=== PATIENT | male | born 1975 | race Caucasian/White ===

== ENCOUNTER 2022-12-01 11:13 | Emergency (ER) | payer OTHER ==
[2022-12-01] MEDS ORDERED: Sodium Chloride 0.9% 10 ML Syringe FLUSH PRN (11:25)
[2022-12-01] MEDS ORDERED: Ondansetron 4 MG/2 ML SDV IV ONE (11:29)
[2022-12-01] MEDS ORDERED: Aspirin 81 MG Tab.Chew PO ONE (11:29)
[2022-12-01 11:35] LABS: BASOPHILS PERCENT AUTO 0.1 % (0.0-1.0); EOSINOPHILS PERCENT AUTO 0.8 % (1.0-3.0); HEMATOCRIT 46.2 % (40.0-54.0); HEMOGLOBIN 16.4 g/dL (14.0-18.0); LYMPHOCYTES PERCENT AUTO 17.2 % (20.5-50.1); MEAN CORPUSCULAR HEMOGLOBIN 32.8 pg (27.0-34.0); MEAN CORPUSCULAR HGB CONC 35.5 g/dL (33.0-35.0); MEAN CORPUSCULAR VOLUME 92.4 fL (80-100); MONOCYTES PERCENT AUTO 7.9 % (2-8); PLATELET COUNT,PLT 191 10^3/uL (150-450); WHITE BLOOD CELL COUNT,WBC 8.6 10^3/uL (5.0-10.0)
[2022-12-01 12:03] LABS: A/G RATIO 1.2; ALANINE AMINOTRANSFERASE,ALT 84 U/L (16-63); ALBUMIN 4.6 g/dL (3.4-5.0); ALKALINE PHOSPHATASE 62 U/L (46-116); ANION GAP 14.9 mEq/L (7-13); ASPARTATE AMNIOTRANSFERASE,AST 38 U/L (15-37); BILIRUBIN TOTAL 0.8 mg/dL (0.2-1.0); BLOOD UREA NITROGEN,BUN 14 mg/dL (7-18); BUN/CREATININE RATIO 15.7 (No establ ref range); CALCIUM 10.2 mg/dL (8.5-10.1); CARBON DIOXIDE,CO2 29 mmol/L (21-32); CHLORIDE,CL 99 mmol/L (98-107); CREATININE 0.89 mg/dL (0.70-1.30); GLUCOSE RANDOM 122 mg/dL (70-99); LIPASE 66 U/L (73-393); POTASSIUM,K 3.9 mmol/L (3.5-5.1); PROTEIN TOTAL,TP 8.5 g/dL (6.4-8.2); SODIUM,NA 139 mmol/L (136-145)
[2022-12-01 12:05] LABS: ESTIMATED GFR 108 mL/min (>=60)
[2022-12-01 12:22] LABS: PTT,PARTIAL THROMBOPLSTIN TIME 27.5 SEC (22.0-34.0)
== END 2022-12-01 14:01 | disposition home or self-care (01) ==
LOC: DL.ED 11:13
DX: R07.89 Other chest pain (principal); K70.9 Alcoholic liver disease, unspecified; F10.90 Alcohol use, unspecified, uncomplicated; R06.09 Other forms of dyspnea; I10 Essential (primary) hypertension; E66.9 Obesity, unspecified; Z79.82 Long term (current) use of aspirin; Z79.899 Other long term (current) drug therapy; Z68.41 Body mass index [BMI] 40.0-44.9, adult
CPT/HCPCS: 36415; 71046; 80053; 83690; 84484; 85025; 85379; 85610; 85730; 93005; 93010; 96374; 99284; 99285-25; A9270-GY; J2405; J3490

== ENCOUNTER 2023-07-16 05:56 | Day surgery (SDC) | payer OTHER ==
[2023-07-16] MEDS ORDERED: Midazolam 1 MG/ML 2 ML SDV ONE (06:08)
[2023-07-16] MEDS ORDERED: fentaNYL 100 MCG/2 ML SDV ONE (06:08)
[2023-07-16] MEDS: Dextrose 5%-0.45% NaCl 1,000 ML IV SCH (06:24)
[2023-07-16] MEDS: fentaNYL 100 MCG/2 ML SDV IV ONE ×2 (07:09→07:10)
[2023-07-16] MEDS: Midazolam 1 MG/ML 2 ML SDV IV ONE ×6 (07:10→07:17)
== END 2023-07-16 08:55 | disposition home or self-care (01) ==
LOC: DL.ENDO 05:56
PROVIDERS: ATTEND Internal Medicine Gastroenterology
DX: Z12.11 Encounter for screening for malignant neoplasm of colon (principal); F41.8 Other specified anxiety disorders; I10 Essential (primary) hypertension; F17.220 Nicotine dependence, chewing tobacco, uncomplicated; Z98.890 Other specified postprocedural states
CPT/HCPCS: G0121; J2250; J3010; J7042